=== PATIENT | female | born 2000 | race Caucasian/White ===

== ENCOUNTER 2025-10-05 13:41 | Day surgery (SDC) | payer BC, MEDICAID ==
[2025-10-05] MEDS ORDERED: hydrALAZINE 20 MG/ML VIAL SLOW IVP PRN (14:32)
== END 2025-10-05 17:35 | disposition home health service (06) ==
LOC: CSHLD/OP 13:41
PROVIDERS: ATTEND Obstetrics & Gynecology
DX: O23.593 Infection of other part of genital tract in pregnancy, third trimester (principal); B96.89 Other specified bacterial agents as the cause of diseases classified elsewhere; O09.43 Supervision of pregnancy with grand multiparity, third trimester; O34.219 Maternal care for unspecified type scar from previous cesarean delivery; Z3A.30 30 weeks gestation of pregnancy; Z90.89 Acquired absence of other organs
CPT/HCPCS: 76815; 87480; 87510; 87660; 99284